=== PATIENT | female | born 1930 | race Caucasian/White ===

== ENCOUNTER 2017-01-02 13:30 | Inpatient (IN) | payer OTHER ==
--- NOTE | 2017-01-02 13:59 | PDOC ---
History of Present Illness - History of Present Illness Initial Comments: 01/02/17 14:35 CHIEF COMPLAINT: Pain and redness of right hand PCP: Dr. Altagracia Means HISTORY OF PRESENT ILLNESS: 86 year old female was sent from urgent care for IV antibiotics for Cellulitis of right hand. A/c to the patient, she had a small cut at the base of the right thumb while cutting cheese yesterday. She started having pain at that area and noticed redness. The redness and swelling increased which progressed upto her elbow, took tylenol which relieved the pain. This morning, pain, redness, swelling persisted, patient went to the urgent care and was sent here at [facility] for IV antibiotics. Labs from the urgent care noted which is WNL. Denies fever, chills, rigors, sweating, chest pain, sob, cough, palpitation, abdominal pain, nausea or vomiting. Bowel/Bladder habit normal. Sleep/Appetite Normal. Recent Travel: None PAST MEDICAL HISTORY: Foot ulcer, PVD, anemia, Hypertension, Hyperlipidemia, Atherosclerotic heart disease, migraine, Hypothyroidism, Sensory neuropathy, Vitreous Detachment, Cataracts PAST SURGICAL HISTORY: As mentioned above Social History: Smoking: Denies Alcohol: Denies Drugs: Denies Family History: Unknown Allergies NKDA <Kimberly Childers - Last Filed: 01/21/17 13:28> <Aundrea Anderson - Last Filed: 01/25/17 09:06> - General Chief Complaint: Wound Infection Stated Complaint: WOUND INFECTION Time Seen by Provider: 01/02/17 13:56 Past History - Past Medical History Anemia: Yes Cardiac Disorders: Yes (IN) HTN: Yes - Surgical History Cardiac Surgery: Yes - Psycho/Social/Smoking Cessation Hx Suicidal Ideation: No Smoking History: Never smoked Information on smoking cessation initiated: No <Kimberly Childers - Last Filed: 01/21/17 13:28> <Aundrea Anderson - Last Filed: 01/25/17 09:06> - Past Medical History Allergies/Adverse Reactions: Allergies Allergy/AdvReac Type Severity Reaction Status Date / Time No Known Allergies Allergy Verified 01/02/17 13:36 Home Medications: Ambulatory Orders Calcium Carbonate/Vitamin D3 [Calcium 600 + Vit D Tablet] 1 each PO BID Cetirizine HCl [Zyrtec -] 10 mg PO DAILY 01/02/17 Cholecalciferol (Vitamin D3) [Vitamin D -] 1,000 unit PO DAILY 01/02/17 Fluticasone Prop 0.05% Nasal [Flonase -] 2 spray NS DAILY 01/02/17 Gabapentin [Neurontin] 100 mg PO HS 01/02/17 Hydrochlorothiazide [Hctz -] 12.5 mg PO DAILY 01/02/17 Lisinopril [Prinivil] 20 mg PO DAILY 01/02/17 Risedronate Sodium [Actonel] 30 mg PO WEEKLY 01/02/17 Atorvastatin Ca [Lipitor] 80 mg PO HS tablet 01/04/17 Carvedilol [Coreg -] 3.125 mg PO BID tablet 01/04/17 Cephalexin Monohydrate [Keflex -] 500 mg PO Q8H #15 capsule 01/04/17 Ferrous Sulfate [Feosol] 325 mg PO DAILY ud 01/04/17 Levothyroxine [Synthroid -] 25 mcg PO DAILY@0700 tablet 01/04/17 Review of Systems - Review of Systems Able to Perform ROS?: Yes Comments:: 01/02/17 14:53 CONSTITUTIONAL: Absent: fever, chills, diaphoresis, generalized weakness, malaise, loss of appetite HEENT: Absent: rhinorrhea, nasal congestion, throat pain, throat swelling, difficulty swallowing, mouth swelling, ear pain, eye pain, visual Changes CARDIOVASCULAR: Absent: chest pain, syncope, palpitations, irregular heart rate, lightheadedness , peripheral edema RESPIRATORY: Absent: cough, shortness of breath, dyspnea with exertion, orthopnea, wheezing, stridor, hemoptysis GASTROINTESTINAL: Absent: abdominal pain, abdominal distension, nausea, vomiting, diarrhea, constipation, melena, hematochezia GENITOURINARY: Absent: dysuria, frequency, urgency, hesitancy, hematuria, flank pain, genital pain MUSCULOSKELETAL: Absent: myalgia, arthralgia, joint swelling SKIN: Present: Redness, swelling over the right hand extending to the elbow. Absent: rash, itching, pallor HEMATOLOGIC/IMMUNOLOGIC: Absent: easy bleeding, easy bruising, lymphadenopathy, frequent infections ENDOCRINE: Absent: unexplained weight gain, unexplained weight loss, heat intolerance, cold intolerance NEUROLOGIC: Absent: headache, focal weakness or paresthesias, dizziness, unsteady gait, seizure, mental status changes, bladder or bowel incontinence PSYCHIATRIC: Absent: anxiety, depression, suicidal or homicidal ideation, hallucinations. Is the patient limited [place]an proficient: No <Kimberly Childers - Last Filed: 01/21/17 13:28> *Physical Exam - Vital Signs Last Vital Signs Temp Pulse Resp BP Pulse Ox 98.1 F 81 18 138/63 99 01/02/17 13:32 01/02/17 13:32 01/02/17 13:32 01/02/17 13:32 01/02/17 13:32 - Physical Exam Comments: 01/02/17 14:54 PE: GENERAL: Awake, alert, and fully oriented, in no acute distress HEAD: No signs of trauma EYES: PERRLA, EOMI, sclera anicteric, conjunctiva clear ENT: Auricles normal inspection, hearing grossly normal, nares patent, oropharynx clear without exudates. Moist mucosa NECK: Normal ROM, supple, no lymphadenopathy, JVD, or masses LUNGS: Breath sounds equal, clear to auscultation bilaterally. No wheezes, and no crackles.. HEART: Regular rate and rhythm, normal S1 and S2, no murmurs, rubs or gallops ABDOMEN: Soft, nontender, normoactive bowel sounds. No guarding, no rebound. No masses EXTREMITIES: Right upper extremity: Swelling+, redness on the dorsum of the hand, palms, streaks of redness extending up to the elbow. Normal range of motion, no edema. No clubbing or cyanosis. No cords, erythema , or tenderness NEUROLOGICAL: Cranial nerves II through XII grossly intact. Normal speech, Gait not observed SKIN: Warm, Dry, normal turgor, no rashes or lesions noted. <Kimberly Childers - Last Filed: 01/21/17 13:28> - Vital Signs Last Vital Signs Temp Pulse Resp BP Pulse Ox 98.4 F 76 20 112/69 96 01/04/17 09:54 01/04/17 09:54 01/04/17 09:54 01/04/17 09:54 01/04/17 09:00 <Aundrea Anderson - Last Filed: 01/25/17 09:06> ED Treatment Course - LABORATORY CBC & Chemistry Diagram: 01/03/17 06:35 01/03/17 06:35 <Alvarado,Jenny - Last Filed: 01/21/17 13:28> - LABORATORY CBC & Chemistry Diagram: 01/03/17 06:35 01/03/17 06:35 - ADDITIONAL ORDERS Additional order review: 01/02/17 14:54 Blood Culture - Final Blood - Peripheral Venous NO GROWTH AFTER 5 DAYS INCUBATION 01/02/17 14:57 Blood Culture - Final Blood - Peripheral Venous NO GROWTH AFTER 5 DAYS INCUBATION 01/02/17 14:57 RBC 3.79 MCV 97.2 H MCHC 33.5 RDW 13.7 MPV 8.8 Neutrophils % 69.8 Lymphocytes % 18.6 Monocytes % 10.5 H Eosinophils % 0.5 Basophils % 0.6 - Medications Given in the ED: ED Medications Discontinued Medications Generic Name Dose Route Start Last Admin Trade Name Freq PRN Reason Stop Dose Admin Acetaminophen 650 mg 01/02/17 18:13 01/02/17 22:05 Tylenol - PO 650 mg Q4H PRN Administration FEVER OR PAIN Atorvastatin Calcium 80 mg 01/02/17 22:00 01/03/17 21:50 Lipitor - PO 80 mg HS CONG Administration Calcium Carbonate/Cholecalciferol 1 tab 01/02/17 22:00 01/04/17 10:46 Os-Catrachito 500+D - PO 1 tab BID CONG Administration Carvedilol 3.125 mg 01/02/17 22:00 01/04/17 10:47 Coreg - PO 3.125 mg BID CONG Administration Cephalexin HCl 500 mg 01/04/17 13:30 01/04/17 13:41 Keflex - PO 500 mg BID CONG Administration Cholecalciferol 1,000 unit 01/03/17 10:00 01/04/17 10:47 Vitamin D3 - PO 1,000 unit DAILY CONG Administration Clopidogrel Bisulfate 300 mg 01/02/17 19:32 01/02/17 20:53 Plavix - PO 01/02/17 19:33 300 mg ONCE ONE Administration Ferrous Sulfate 325 mg 01/03/17 10:00 01/04/17 10:47 Feosol - PO 325 mg DAILY CONG Administration Fluticasone Propionate 2 spray 01/03/17 10:00 01/04/17 11:35 Flonase - NS 2 spray DAILY CONG Administration Folic Acid 1 mg 01/03/17 10:00 01/04/17 10:47 Folic Acid - PO 1 mg DAILY CONG Administration Gabapentin 100 mg 01/02/17 22:00 01/03/17 21:50 Neurontin - PO 100 mg HS CONG Administration Hydrochlorothiazide 12.5 mg 01/03/17 10:00 01/04/17 10:47 Hctz - PO 12.5 mg DAILY CONG Administration Vancomycin HCl 1,000 mg/ 250 mls @ 250 mls/hr 01/02/17 14:32 01/02/17 15:26 Dextrose IVPB 01/02/17 15:31 250 mls/hr ONCE ONE Administration Protocol Cefazolin Sodium 50 mls @ 100 mls/hr 01/03/17 10:00 01/04/17 11:34 Ancef 1gm Ivpb (Pre-Docked) IVPB Not Given Q8H-IV CONG Levothyroxine Sodium 25 mcg 01/03/17 07:00 01/04/17 06:22 Synthroid - PO 25 mcg DAILY@0700 CONG Administration Lisinopril 20 mg 01/03/17 10:00 01/04/17 10:47 Prinivil PO 20 mg DAILY CONG Administration Loratadine 10 mg 01/03/17 10:00 01/04/17 10:47 Claritin - PO 10 mg DAILY CONG Administration Zolpidem Tartrate 5 mg 01/03/17 21:09 01/03/17 21:50 Ambien - PO 01/04/17 21:08 5 mg HS PRN Administration INSOMNIA <Aundrea Anderson - Last Filed: 01/25/17 09:06> Medical Decision Making - Medical Decision Making 01/02/17 14:57 Patient seen and examined at bed side. Looks comfortable. Is not in pain. Positive physical exam: Right upper extremity: Swelling+, Redness over the palms and wrist extending upto the elbows. Raised temperature. Patient was sent from urgent care, labs attached in the chart. However, ordered CBC, CMP, blood culture now. Patient received IV Vancomycin 1gm stat. Assessment/Plan: Cellulitis of the right hand. Place on observation Since patient has streaks of redness extending to the elbow, patient needs IV antibiotics. No pain medication Admitting physician accepted the patient. Illness, Investigation and PLan of care explained to the patient. She verbalized understanding. Case seen and discussed with Dr. Anderson. <Kimberly Childers - Last Filed: 01/21/17 13:28> *DC/Admit/Observation/Transfer - Discharge Dispostion Admit: Yes <Kimberly Childers - Last Filed: 01/21/17 13:28> - Attestations Physician Attestion: I reviewed the case with the mid-level practitioner and agree with the mid- level practitioner's assessment, diagnosis and disposition. <Aundrea Anderson - Last Filed: 01/25/17 09:06> Diagnosis at time of Disposition: Cellulitis Qualifiers: Site of cellulitis: extremity Site of cellulitis of extremity: upper extremity Laterality: right Qualified Code(s): L03.113 - Cellulitis of right upper limb - Discharge Dispostion Disposition: HOME Condition at time of disposition: Stable - Prescriptions
--- NOTE | 2017-01-02 14:19 | PDOC ---
Attending Attestation - Resident Resident Name: Kimberly Childers - ED Attending Attestation I have performed the following: I have examined & evaluated the patient, The case was reviewed & discussed with the resident, I agree w/resident's findings & plan, Exceptions are as noted - HPI HPI: 86 yo F history PVD, HTN, HL, ASHD, hypothyroid presents with R hand swelling, redness, and pain. She sustained a small cut while slicing cheese yesterday, and she noted that the area started to turn red. Now, one day later, it has rapidly spread to the back of her hand and is tracking up her arm. She endorses pain, but denies fever, chills. She was evaluated at an urgent care, which recommended that she go to hospital for IV antibiotics. - Physicial Exam PE: GENERAL: Awake, alert, and fully oriented, in no acute distress HEAD: No signs of trauma EYES: PERRLA, EOMI, sclera anicteric, conjunctiva clear ENT: Auricles normal inspection, hearing grossly normal, nares patent, oropharynx clear without exudates. Moist mucosa NECK: Normal ROM, supple, no lymphadenopathy, JVD, or masses LUNGS: Breath sounds equal, clear to auscultation bilaterally. No wheezes, and no crackles HEART: Regular rate and rhythm, normal S1 and S2, no murmurs, rubs or gallops ABDOMEN: Soft, nontender, normoactive bowel sounds. No guarding, no rebound. No masses EXTREMITIES: Normal range of motion, no edema. No clubbing or cyanosis. No cords, erythema, or tenderness NEUROLOGICAL: Cranial nerves II through XII grossly intact. Normal speech, normal gait SKIN: Warm, Dry, normal turgor. R hand with swelling, erythema on the dorsal surface of the hand and thumb, with lymphatic streaking extending to the elbow. - Medical Decision Making Patient will require observation at the least while receiving IV antibiotics, based on lymphatic streaking up the arm.
[2017-01-02] MEDS ORDERED: VANCOMYCIN 1,000 MG in DEXTROSE 5%-WATER - 250 ML IVPB ONE (14:32)
[2017-01-02] MEDS ORDERED: VANCOMYCIN 1 GRAM (PRE-DOCKED) 250 ML IVPB ONE (14:58)
[2017-01-02 15:06] LABS: BASOPHIL 0.6 % (0-2.0); EOSINOPHIL 0.5 % (0-4.5); MCH 32.6 pg (25.7-33.7); MCHC 33.5 g/dl (32.0-36.0); MEAN CELL VOLUME 97.2 fl (80-96); MEAN PLT VOLUME 8.8 fl (7.5-11.1); NEUTROPHILS 69.8 % (42.8-82.8); PLATELET COUNT 258 K/MM3 (134-434); RDW 13.7 % (11.6-15.6)
[2017-01-02 15:26] LABS: ALBUMIN 3.5 g/dl (3.4-5.0); BILIRUBIN,TOTAL 0.5 mg/dL (0.2-1.0); CREATININE 0.9 mg/dL (0.55-1.02); TOT PROT 6.8 g/dl (6.4-8.2)
--- NOTE | 2017-01-02 15:39 | HP ---
CHIEF COMPLAINT: erythema and pain right hand PCP: Dr. Altagracia Means HISTORY OF PRESENT ILLNESS: 86 year old woman with HTN, hx of MIx2, osteoporosis, hypothyroidism, was referred from [facility] urgent care for IV antibiotics for right hand cellulitis. She was cutting cheese yesterday when she cut herself in the byrnes space between her thumb and index finger. Later in the day she noticed her hand became more red, swollen and painful. They went to a later in the day. Within 24hrs the redness went up to her elbow. She denies any discharge from the cut since the bleeding stopped. This morning she went to urgent care, labs were wnl(no leucocytosis)/ (afebrile , VSS), given the redness to elbow she was recommended to to go ER. Last week she had a productive cough with URI symptoms that self-resolved without antibiotics. Family at bedside also c/o unsteady gait, no recent falls. Denies fever, chills, difficulty moving fingers or arm, no previous episodes of cellulitis. ER course was notable for: (1) vanc x1 (2) blood cultures Recent Travel: none PAST MEDICAL HISTORY: Hypertension Heart disease s/p [place] x2 with stent placed both in 2015 osteoporosis varicose veins Neuropathy in her feet hypothyroidism PAST SURGICAL HISTORY: cardiac stent placement x2 in 2014 Social History: Smoking: never Alcohol: denies Drugs: denies Family History: [place] Allergies No Known Allergies Allergy (Verified 01/02/17 13:36) HOME MEDICATIONS: Home Medications Medication Instructions Recorded Calcium Carbonate/Vitamin D3 1 each PO BID 01/02/17 [Calcium 600 + Vit D Tablet] Cetirizine HCl [Zyrtec -] 10 mg PO DAILY 01/02/17 Cholecalciferol (Vitamin D3) 1,000 unit PO DAILY 01/02/17 [Vitamin D3 -] Fluticasone Prop 0.05% Nasal 2 spray NS DAILY 01/02/17 [Flonase -] Gabapentin [Neurontin] 100 mg PO HS 01/02/17 Hydrochlorothiazide [Hctz -] 12.5 mg PO DAILY 01/02/17 Lisinopril [Prinivil] 20 mg PO DAILY 01/02/17 Risedronate Sodium [Actonel] 30 mg PO WEEKLY 01/02/17 REVIEW OF SYSTEMS CONSTITUTIONAL: Absent: fever, chills, diaphoresis, generalized weakness, malaise, loss of appetite, weight change HEENT: Absent: rhinorrhea, nasal congestion, throat pain, throat swelling, difficulty swallowing, mouth swelling, ear pain, eye pain, visual changes CARDIOVASCULAR: Absent: chest pain, syncope, palpitations, irregular heart rate, lightheadedness , peripheral edema RESPIRATORY: Absent: cough, shortness of breath, dyspnea with exertion, orthopnea, wheezing, stridor, hemoptysis GASTROINTESTINAL: Absent: abdominal pain, abdominal distension, nausea, vomiting, diarrhea, constipation, melena, hematochezia GENITOURINARY: Absent: dysuria, frequency, urgency, hesitancy, hematuria, flank pain, genital pain MUSCULOSKELETAL: Absent: myalgia, arthralgia, joint swelling, back pain, neck pain SKIN: Absent: rash, itching, pallor HEMATOLOGIC/IMMUNOLOGIC: Absent: easy bleeding, easy bruising, lymphadenopathy, frequent infections ENDOCRINE: Absent: unexplained weight gain, unexplained weight loss, heat intolerance, cold intolerance NEUROLOGIC: Absent: headache, focal weakness or paresthesias, dizziness, unsteady gait, seizure, mental status changes, bladder or bowel incontinence PSYCHIATRIC: Absent: anxiety, depression, suicidal or homicidal ideation, hallucinations. PHYSICAL EXAMINATION Vital Signs - 24 hr 01/02/17 13:32 Temperature 98.1 F Pulse Rate 81 Respiratory 18 Rate Blood Pressure 138/63 O2 Sat by Pulse 99 Oximetry (%) GENERAL: thin elderly woma, Awake, alert, and fully oriented, in no acute distress. HEAD: Normal with no signs of trauma. EYES: Pupils equal, round and reactive to light, extraocular movements intact, sclera anicteric, conjunctiva clear. No lid lag. EARS, NOSE, THROAT: Ears normal, nares patent, oropharynx clear without exudates. Moist mucous membranes. NECK: Normal range of motion, supple without lymphadenopathy, JVD, or masses. LUNGS: Breath sounds equal, clear to auscultation bilaterally. No wheezes, and no crackles. No accessory muscle use. HEART: Regular rate and rhythm, normal S1 and S2 without murmur, rub or gallop. ABDOMEN: Soft, nontender, not distended, normoactive bowel sounds, no guarding, no rebound, no masses. MUSCULOSKELETAL: Normal range of motion at all joints. No bony deformities or tenderness. No CVA tenderness. UPPER EXTREMITIES: 2+ pulses, warm, well-perfused. No peripheral edema. Right: small approx 1cm closed laceration visible in webspace between thumb and index finger. erythema and swelling on dorsum upto MCP joints, palmar upto PCP joints, medially upto antecubital fossa. sensation intact throughout, motor function at fingers and wrist intact. no fluctuance, no discharge, skin intact. 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 Left: strength 5/5 at biceps/triceps/hand pit operator, shoulder. sensation intact. LOWER EXTREMITIES: 2+ pulses, warm, well-perfused. No calf tenderness. No peripheral edema. varicose veins. NEUROLOGICAL: Normal speech. [id number] normal, [id number] normal. PSYCHIATRIC: Cooperative. Good eye contact. Appropriate mood and affect. Laboratory Results - last 24 hr 01/02/17 01/02/17 14:57 14:57 WBC 8.0 RBC 3.79 Hgb 12.4 Hct 36.9 MCV 97.2 H MCHC 33.5 RDW 13.7 Plt Count 258 MPV 8.8 Neutrophils % 69.8 Lymphocytes % 18.6 Monocytes % 10.5 H Eosinophils % 0.5 Basophils % 0.6 Sodium 141 Potassium 4.2 Chloride 103 Carbon Dioxide 31 Anion Gap 7 L BUN 19 H Creatinine 0.9 Creat Clearance w eGFR 59.23 Random Glucose 90 Calcium 9.0 Total Bilirubin 0.5 AST 22 ALT 32 Alkaline Phosphatase 89 Total Protein 6.8 Albumin 3.5 ASSESSMENT/PLAN: 86 yr old woman with HTN, hx of [place], admitted with right hand cellulitis. #Right hand cellulitis; concern for MRSA given streaking upto elbow - vancomycin 1 dose in Ed - ID consulted - blood cx pending - pain control with tylenol 650mg po bid #HTN - HTZ, lisinopril - carvidelol #unsteady gait - PT evaluation #CAD - atorvastatin - clopidogrel #Hypothyroidism - synthroid 75mcg #Diet: low sodium DVT: on clopidogrel Visit type - Emergency Visit Emergency Visit: Yes ED Registration Date: 01/02/17 Care time: The patient presented to the Emergency Department on the above date and was hospitalized for further evaluation of their emergent condition. - New Patient This patient is new to me today: Yes Date on this admission: 01/02/17 - Critical Care Critical Care patient: No
[2017-01-02] MEDS ORDERED: ACETAMINOPHEN 325 MG TABLET (FP) PO PRN (18:13)
--- NOTE | 2017-01-02 18:23 | PN ---
Teaching Attending Note Name of Resident: Mikey Silva ATTENDING PHYSICIAN STATEMENT I saw and evaluated the patient. I reviewed the resident's note and discussed the case with the resident. I agree with the resident's findings and plan as documented. SUBJECTIVE: Patient is a 86yo female , was cutting cheese where she cut herself in the web space between her thumb and index finger. Later in the day she noticed her hand became red, swollen and painful. No fever or chills, no shortness of breath, no headache. OBJECTIVE: Vital Signs Temperature 98.1 F 01/02/17 13:32 Pulse Rate 81 01/02/17 13:32 Respiratory Rate 18 01/02/17 13:32 Blood Pressure 138/63 01/02/17 13:32 O2 Sat by Pulse Oximetry (%) 99 01/02/17 13:32 GENERAL: thin elderly woma, Awake, alert, and fully oriented, in no acute distress. HEAD: Normal with no signs of trauma. EYES: Pupils equal, round and reactive to light, extraocular movements intact, sclera anicteric, conjunctiva clear. No lid lag. EARS, NOSE, THROAT: Ears normal, nares patent, oropharynx clear without exudates. Moist mucous membranes. NECK: Normal range of motion, supple without lymphadenopathy, JVD, or masses. LUNGS: Breath sounds equal, clear to auscultation bilaterally. No wheezes, and no crackles. No accessory muscle use. HEART: Regular rate and rhythm, normal S1 and S2 without murmur, rub or gallop. ABDOMEN: Soft, nontender, not distended, normoactive bowel sounds, no guarding, no rebound, no masses. MUSCULOSKELETAL: Normal range of motion at all joints. No bony deformities or tenderness. No CVA tenderness. EXTREMITIES: 2+ pulses, warm, well-perfused. No peripheral edema. RUE : erythema and swelling on dorsum upto MCP joints, palmar upto PCP joints, NEUROLOGICAL: Cranial nerves II-XII intact. Normal speech. Normal gait. PSYCHIATRIC: Cooperative. Good eye contact. Appropriate mood and affect. SKIN: Warm, dry, normal turgor, no rashes or lesions noted. CBCD WBC 8.0 K/mm3 (4.0-10.0) 01/02/17 14:57 RBC 3.79 M/mm3 (3.60-5.2) 01/02/17 14:57 Hgb 12.4 GM/dL (10.7-15.3) 01/02/17 14:57 Hct 36.9 % (32.4-45.2) 01/02/17 14:57 MCV 97.2 fl (80-96) H 01/02/17 14:57 MCHC 33.5 g/dl (32.0-36.0) 01/02/17 14:57 RDW 13.7 % (11.6-15.6) 01/02/17 14:57 Plt Count 258 K/MM3 (134-434) 01/02/17 14:57 MPV 8.8 fl (7.5-11.1) 01/02/17 14:57 CMP Sodium 141 mmol/L (136-145) 01/02/17 14:57 Potassium 4.2 mmol/L (3.5-5.1) 01/02/17 14:57 Chloride 103 mmol/L (98-107) 01/02/17 14:57 Carbon Dioxide 31 mmol/L (21-32) 01/02/17 14:57 Anion Gap 7 (8-16) L 01/02/17 14:57 BUN 19 mg/dL (7-18) H 01/02/17 14:57 Creatinine 0.9 mg/dL (0.55-1.02) 01/02/17 14:57 Creat Clearance w eGFR 59.23 (>60) 01/02/17 14:57 Random Glucose 90 mg/dL (74-106) 01/02/17 14:57 Calcium 9.0 mg/dL (8.5-10.1) 01/02/17 14:57 Total Bilirubin 0.5 mg/dL (0.2-1.0) 01/02/17 14:57 AST 22 U/L (15-37) 01/02/17 14:57 ALT 32 U/L (12-78) 01/02/17 14:57 Alkaline Phosphatase 89 U/L (45-117) 01/02/17 14:57 Total Protein 6.8 g/dl (6.4-8.2) 01/02/17 14:57 Albumin 3.5 g/dl (3.4-5.0) 01/02/17 14:57 Current Medications Generic Name Dose Route Start Last Admin Trade Name Freq PRN Reason Stop Dose Admin Acetaminophen 650 mg 01/02/17 18:13 Tylenol - PO Q4H PRN FEVER OR PAIN Calcium Carbonate/Cholecalciferol 1 tab 01/02/17 22:00 Os-Catrachito 500+D - PO BID CONG Cholecalciferol 1,000 unit 01/03/17 10:00 Vitamin D3 - PO DAILY [facility] Enoxaparin Sodium 30 mg 01/03/17 10:00 Lovenox - SQ DAILY CONG Fluticasone Propionate 2 spray 01/03/17 10:00 Flonase - NS DAILY [facility] Gabapentin 100 mg 01/02/17 22:00 Neurontin - PO HS [facility] Hydrochlorothiazide 12.5 mg 01/03/17 10:00 Hctz - PO DAILY CONG Lisinopril 20 mg 01/03/17 10:00 Prinivil PO DAILY CONG Loratadine 10 mg 01/03/17 10:00 Claritin - PO DAILY [facility] Home Medications Medication Instructions Recorded Calcium Carbonate/Vitamin D3 1 each PO BID 01/02/17 [Calcium 600 + Vit D Tablet] Cetirizine HCl [Zyrtec -] 10 mg PO DAILY 01/02/17 Cholecalciferol (Vitamin D3) 1,000 unit PO DAILY 01/02/17 [Vitamin D3 -] Fluticasone Prop 0.05% Nasal 2 spray NS DAILY 01/02/17 [Flonase -] Gabapentin [Neurontin] 100 mg PO HS 01/02/17 Hydrochlorothiazide [Hctz -] 12.5 mg PO DAILY 01/02/17 Lisinopril [Prinivil] 20 mg PO DAILY 01/02/17 Risedronate Sodium [Actonel] 30 mg PO WEEKLY 01/02/17 ASSESSMENT AND PLAN: 86 year old woman with HTN, hx of MIx2, osteoporosis, hypothyroidism, was referred from [facility] urgent care for IV antibiotics for right hand cellulitis. She was cutting cheese yesterday when she cut herself in the web space between her thumb and index finger. # Acute Cellulitis of Right upper extremity ID consult requested , Panculture ordered, blood, ua ,urine culture IV antibiotic Vancomycin was given in ED. Will give another dose in am. #HTN controlled continue Lisinopril and Hctz DVT px: Lovenox
[2017-01-02] MEDS ORDERED: CLOPIDOGREL BISULFATE 300 MG TABLET PO ONE (19:32)
[2017-01-02] MEDS ORDERED: CLOPIDOGREL BISULFATE 300 MG TABLET ONE (20:48)
[2017-01-02] MEDS: ATORVASTATIN CA 80 MG TABLET (FP) PO SCH (22:01)
[2017-01-02] MEDS: CALCIUM 500MG/VIT-D 200 UNITS COMBO TABLET (FP) PO SCH (22:01)
[2017-01-02] MEDS: GABAPENTIN 100 MG CAPSULE (FP) PO SCH (22:01)
[2017-01-02] MEDS: CARVEDILOL 3.125 MG TABLET (FP) PO SCH (22:01)
[2017-01-02 23:15] LABS: URINE APPEARANCE CLEAR; URINE BILIRUBIN NEGATIVE (NEGATIVE); URINE BLOOD NEGATIVE (NEGATIVE); URINE COLOR YELLOW; URINE GLUCOSE (UA) NEGATIVE (NEGATIVE); URINE KETONE NEGATIVE (NEGATIVE); URINE NITRITE NEGATIVE (NEGATIVE); URINE PROTEIN NEGATIVE (NEGATIVE); URINE UROBILINOGEN NEGATIVE E.U./dl (0.2-1.0)
[2017-01-02 23:16] VITALS: BMI 18.5
[2017-01-02 23:44] LABS: URINE LEUK ESTERASE TRACE (NEGATIVE)
[2017-01-02 23:49] LABS: URINE MUCUS FEW; URINE RBC 2 /hpf (0-3); URINE WBC 9 /hpf (3-5)
[2017-01-03] MEDS: LEVOTHYROXINE NA 25 MCG TABLET (FP) PO SCH (06:46)
[2017-01-03 07:04] LABS: MCH 32.8 pg (25.7-33.7); MCHC 33.5 g/dl (32.0-36.0); MEAN CELL VOLUME 97.8 fl (80-96); MEAN PLT VOLUME 8.5 fl (7.5-11.1); PLATELET COUNT 245 K/MM3 (134-434); RDW 13.5 % (11.6-15.6); WHITE BLOOD COUNT 7.8 K/mm3 (4.0-10.0)
[2017-01-03 07:38] LABS: CALCIUM 8.7 mg/dL (8.5-10.1); CREATININE 0.8 mg/dL (0.55-1.02)
--- NOTE | 2017-01-03 09:40 | PN ---
Progress Note (short form) - Note Progress Note: ID consult dictated imp/reccd 86 year old female admitted with erythema and swelling of the right hand after sustaining a small cult to the hand on Tuesday no fevers or chills progressive erythema and swelling no purulence or fluctuance to suggest abscess no leukocytosis cultures drawn given vancomycin in ED cellulitis of the right hand improving no RF for MRSA can switch to cefazolin if improved in am, home on keflex Problem List - Problems (1) Cellulitis Code(s): L03.90 - CELLULITIS, UNSPECIFIED Qualifiers: Site of cellulitis: extremity Site of cellulitis of extremity: upper extremity Laterality: right Qualified Code(s): L03.113 - Cellulitis of right upper limb
[2017-01-03] MEDS ORDERED: PT OWN MED DRAWER 7, Y5N ONE (09:45)
[2017-01-03] MEDS: CHOLECALCIFEROL (VITAMIN D3) 1,000 UNIT TABLET (FP) PO SCH (09:55)
[2017-01-03] MEDS: FERROUS SO4 325 MG TABLET (FP) PO SCH (09:55)
[2017-01-03] MEDS: FOLIC ACID 1 MG TABLET (FP) PO SCH (09:55)
[2017-01-03] MEDS: HYDROCHLOROTHIAZIDE 12.5 MG CAPSULE (FP) PO SCH (09:55)
[2017-01-03] MEDS: LISINOPRIL 20 MG TABLET (FP) PO SCH (09:55)
[2017-01-03] MEDS: CALCIUM 500MG/VIT-D 200 UNITS COMBO TABLET (FP) PO SCH ×2 (09:55→21:50)
[2017-01-03] MEDS: LORATADINE 10 MG TABLET PO SCH (09:56)
[2017-01-03] MEDS: CARVEDILOL 3.125 MG TABLET (FP) PO SCH ×2 (09:56→21:50)
[2017-01-03] MEDS ORDERED: VANCOMYCIN 1 GRAM (PRE-DOCKED) 250 ML IVPB ONE (10:00)
[2017-01-03] MEDS ORDERED: CEFAZOLIN 1 GM/D5W 50 ML IVPB SCH (10:00)
[2017-01-03] MEDS ORDERED: ENOXAPARIN NA (PORCINE) 30 MG/0.3 ML DISP.SYRIN SQ SCH (10:00)
[2017-01-03] MEDS: CEFAZOLIN (PRE-DOCKED) 50 ML IVPB SCH ×2 (10:15→18:04)
--- NOTE | 2017-01-03 11:56 | CONS ---
DATE OF CONSULTATION: DATE OF DICTATION: 01/03/2017 REQUESTED BY: Hospitalist service. This is an 86-year-old woman who lives at home with her 94-year-old . On Tuesday she was cutting some cheese and she nicked her right hand. Later in the day, she went to a . She noted progressive erythema of the hand extending up to her elbow. She went to the urgent care center where, given the degree of erythema, she was referred to the ER. She has had no fevers or chills. She otherwise feels well. There has been no drainage or discharge from the hand. In the emergency room, she had labs drawn that showed a normal white count and she was given a dose of vancomycin. She denies any fevers or chills. She has no trouble moving her fingers. She has never had cellulitis before. She has not recently taken any antibiotics. Her past medical history is notable for hypertension. She has a history of coronary artery disease, status post [place] x2 with stent, osteoporosis, varicose veins, peripheral neuropathy, hypothyroidism. She has a history of peripheral vascular disease. She has no known drug allergies. Her medications at home include with vitamin D, Zyrtec, Flonase, Neurontin, hydrochlorothiazide, Prinivil, and Actonel. SOCIAL HISTORY: She is . She lives at home with her . There is no history of any cigarette or substance use. REVIEW OF SYSTEMS: She reports her hand is improved, she has no pain. She has no nausea, vomiting, diarrhea, dysuria, and as stated before, no recent antibiotic use. PHYSICAL EXAMINATION: General: She is a pleasant elderly woman in no acute distress. Vital Signs: Temperature is 97.9. She has had no fever. Pulse of 79. Blood pressure 107/60. Respiratory rate 18. She weighs 100.3 pounds. She is saturating 96% on room air. HEENT: She is normocephalic. Her eyes are anicteric. She has no thrush or pharyngitis. Neck: Supple. Lungs: Clear to auscultation. Heart: Regular rate and rhythm. Abdomen: Soft, nontender. Extremities: Notable for diffuse erythema of the right hand, which she reports is much improved. She no longer has erythema of the forearm. Right arm is more swollen than the left. She has full range of motion of the hand. She has a palpable radial pulse. Both legs, she has some discoloration of all her toes, which she says is chronic from her peripheral vascular disease. Her labs are notable for a white count of 7.8, hemoglobin 12.3, platelets of 245, BUN 16, creatinine 0.8. Urinalysis has 9 white cells. Cultures are pending. In summary, this is an 86-year-old woman with cellulitis of the right hand, which is improving. No risk factors for MRSA. Can switch to cefazolin. If improved in the morning, she can go home on Keflex. Further recommendations to follow, based on the clinical course. GLADYS PATTON M.D. [id number]
[2017-01-03] MEDS: FLUTICASONE PROP 0.05% 16 GM NASAL SPRAY NS SCH (12:37)
--- NOTE | 2017-01-03 18:01 | PN ---
Progress Note (short form) - Note Progress Note: Patient is comfortable , still having redness of right Temperature 98.5 F 01/03/17 14:12 Pulse Rate 74 01/03/17 14:12 Respiratory Rate 18 01/03/17 14:12 Blood Pressure 122/56 01/03/17 14:12 O2 Sat by Pulse Oximetry (%) 95 01/03/17 09:00 GENERAL: thin elderly woma, Awake, alert, and fully oriented, in no acute distress. HEAD: Normal with no signs of trauma. EYES: Pupils equal, round and reactive to light, extraocular movements intact, sclera anicteric, conjunctiva clear. No lid lag. EARS, NOSE, THROAT: Ears normal, nares patent, oropharynx clear without exudates. Moist mucous membranes. NECK: Normal range of motion, supple without lymphadenopathy, JVD, or masses. LUNGS: Breath sounds equal, clear to auscultation bilaterally. No wheezes, and no crackles. No accessory muscle use. HEART: Regular rate and rhythm, normal S1 and S2 without murmur, rub or gallop. ABDOMEN: Soft, nontender, not distended, normoactive bowel sounds, no guarding, no rebound, no masses. MUSCULOSKELETAL: Normal range of motion at all joints. No bony deformities or tenderness. No CVA tenderness. EXTREMITIES: 2+ pulses, warm, well-perfused. No peripheral edema. Right UE: erythema and swelling on dorsum upto MCP joints, palmar up to PCP joints, LOWER EXTREMITIES: 2+ pulses, warm, well-perfused. No calf tenderness. No peripheral edema. NEUROLOGICAL: Cranial nerves II-XII intact. Normal speech. Normal gait. PSYCHIATRIC: Cooperative. Good eye contact. Appropriate mood and affect. SKIN: Warm, dry, normal turgor, no rashes or lesions noted. CBCD WBC 7.8 K/mm3 (4.0-10.0) 01/03/17 06:35 RBC 3.75 M/mm3 (3.60-5.2) 01/03/17 06:35 Hgb 12.3 GM/dL (10.7-15.3) 01/03/17 06:35 Hct 36.7 % (32.4-45.2) 01/03/17 06:35 MCV 97.8 fl (80-96) H 01/03/17 06:35 MCHC 33.5 g/dl (32.0-36.0) 01/03/17 06:35 RDW 13.5 % (11.6-15.6) 01/03/17 06:35 Plt Count 245 K/MM3 (134-434) 01/03/17 06:35 MPV 8.5 fl (7.5-11.1) 01/03/17 06:35 CMP Sodium 142 mmol/L (136-145) 01/03/17 06:35 Potassium 4.1 mmol/L (3.5-5.1) 01/03/17 06:35 Chloride 106 mmol/L (98-107) 01/03/17 06:35 Carbon Dioxide 28 mmol/L (21-32) 01/03/17 06:35 Anion Gap 8 (8-16) 01/03/17 06:35 BUN 16 mg/dL (7-18) 01/03/17 06:35 Creatinine 0.8 mg/dL (0.55-1.02) 01/03/17 06:35 Creat Clearance w eGFR 59.23 (>60) 01/02/17 14:57 Random Glucose 100 mg/dL (74-106) 01/03/17 06:35 Calcium 8.7 mg/dL (8.5-10.1) 01/03/17 06:35 Total Bilirubin 0.5 mg/dL (0.2-1.0) 01/02/17 14:57 AST 22 U/L (15-37) 01/02/17 14:57 ALT 32 U/L (12-78) 01/02/17 14:57 Alkaline Phosphatase 89 U/L (45-117) 01/02/17 14:57 Total Protein 6.8 g/dl (6.4-8.2) 01/02/17 14:57 Albumin 3.5 g/dl (3.4-5.0) 01/02/17 14:57 Current Medications Generic Name Dose Route Start Last Admin Trade Name Freq PRN Reason Stop Dose Admin Acetaminophen 650 mg 01/02/17 18:13 01/02/17 22:05 Tylenol - PO 650 mg Q4H PRN Administration FEVER OR PAIN Atorvastatin Calcium 80 mg 01/02/17 22:00 01/02/17 22:01 Lipitor - PO 80 mg HS CONG Administration Calcium Carbonate/Cholecalciferol 1 tab 01/02/17 22:00 01/03/17 09:55 Os-Catrachito 500+D - PO 1 tab BID CONG Administration Carvedilol 3.125 mg 01/02/17 22:00 01/03/17 09:56 Coreg - PO 3.125 mg BID CONG Administration Cholecalciferol 1,000 unit 01/03/17 10:00 01/03/17 09:55 Vitamin D3 - PO 1,000 unit DAILY CONG Administration Ferrous Sulfate 325 mg 01/03/17 10:00 01/03/17 09:55 Feosol - PO 325 mg DAILY CONG Administration Fluticasone Propionate 2 spray 01/03/17 10:00 01/03/17 12:37 Flonase - NS 2 spray DAILY CONG Administration Folic Acid 1 mg 01/03/17 10:00 01/03/17 09:55 Folic Acid - PO 1 mg DAILY CONG Administration Gabapentin 100 mg 01/02/17 22:00 01/02/17 22:01 Neurontin - PO 100 mg HS CONG Administration Hydrochlorothiazide 12.5 mg 01/03/17 10:00 01/03/17 09:55 Hctz - PO 12.5 mg DAILY CONG Administration Cefazolin Sodium 50 mls @ 100 mls/hr 01/03/17 10:00 01/03/17 10:15 Ancef 1gm Ivpb (Pre-Docked) IVPB 100 mls/hr Q8H-IV CONG Administration Levothyroxine Sodium 25 mcg 01/03/17 07:00 01/03/17 06:46 Synthroid - PO 25 mcg DAILY@0700 CONG Administration Lisinopril 20 mg 01/03/17 10:00 01/03/17 09:55 Prinivil PO 20 mg DAILY CONG Administration Loratadine 10 mg 01/03/17 10:00 01/03/17 09:56 Claritin - PO 10 mg DAILY CONG Administration Home Medications Medication Instructions Recorded Calcium Carbonate/Vitamin D3 1 each PO BID 01/02/17 [Calcium 600 + Vit D Tablet] Cetirizine HCl [Zyrtec -] 10 mg PO DAILY 01/02/17 Cholecalciferol (Vitamin D3) 1,000 unit PO DAILY 01/02/17 [Vitamin D3 -] Fluticasone Prop 0.05% Nasal 2 spray NS DAILY 01/02/17 [Flonase -] Gabapentin [Neurontin] 100 mg PO HS 01/02/17 Hydrochlorothiazide [Hctz -] 12.5 mg PO DAILY 01/02/17 Lisinopril [Prinivil] 20 mg PO DAILY 01/02/17 Risedronate Sodium [Actonel] 30 mg PO WEEKLY 01/02/17 ASSESSMENT AND PLAN: 86 year old woman with HTN, hx of MIx2, osteoporosis, hypothyroidism, was referred from [facility] urgent care for IV antibiotics for right hand cellulitis. She was cutting cheese yesterday when she cut herself in the byrnse space between her thumb and index finger. # Acute Cellulitis of Right upper extremity on IV Ancef 1gm q8h s/p Vancomycin . #HTN controlled continue Lisinopril and Hctz DVT px: Lovenox Visit type - Emergency Visit Emergency Visit: Yes ED Registration Date: 01/02/17 Care time: The patient presented to the Emergency Department on the above date and was hospitalized for further evaluation of their emergent condition. - New Patient This patient is new to me today: No - Critical Care Critical Care patient: No
[2017-01-03] MEDS ORDERED: ZOLPIDEM TARTRATE 5 MG TABLET PO PRN (21:09)
[2017-01-03] MEDS: GABAPENTIN 100 MG CAPSULE (FP) PO SCH (21:50)
[2017-01-03] MEDS: ATORVASTATIN CA 80 MG TABLET (FP) PO SCH (21:50)
[2017-01-04] MEDS: CEFAZOLIN (PRE-DOCKED) 50 ML IVPB SCH ×2 (01:17→11:34)
[2017-01-04] MEDS: LEVOTHYROXINE NA 25 MCG TABLET (FP) PO SCH (06:22)
[2017-01-04 06:58] VITALS: TEMP 98.4
--- NOTE | 2017-01-04 09:19 | PN ---
Physical Exam: SUBJECTIVE: Patient seen and examined. no complaints. erythema in hand has improved. denies hand pain, chest pain, SOB, fever, chills, n/v. eating/toileting/ambulating without difficulty. OBJECTIVE: Vital Signs Period Temp Pulse Resp BP Sys/Waldron Pulse Ox Last 24 Hr 98.4 F-99.0 F 74-82 18-20 108-134/49-76 94 GENERAL: The patient is awake, alert, and fully oriented, in no acute distress. EYES: PERRL, extraocular movements intact. ENT: Ears normal, nares patent, oropharynx clear without exudates, moist mucous membranes. NECK: Trachea midline, full range of motion, supple. LUNGS: Breath sounds equal, clear to auscultation bilaterally, no wheezes, no crackles, no accessory muscle use. HEART: Regular rate and rhythm, S1, S2 without murmur, rub or gallop. ABDOMEN: Soft, nontender, nondistended, normoactive bowel sounds, no guarding, no rebound. 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 2+ pulses, warm, well-perfused, no edema. right hand 1 cm healing laceration in byrnes space between thumb and index finger without discharge or tenderness. LE: b/l sensation intact and strength5/5. 2+ pulses, warm, well-perfused, no edema. erythema in b/l toes with mild ttp. Active Medications Generic Name Dose Route Start Last Admin Trade Name Freq PRN Reason Stop Dose Admin Acetaminophen 650 mg 01/02/17 18:13 01/02/17 22:05 Tylenol - PO 650 mg Q4H PRN Administration FEVER OR PAIN Atorvastatin Calcium 80 mg 01/02/17 22:00 01/03/17 21:50 Lipitor - PO 80 mg HS CONG Administration Calcium Carbonate/Cholecalciferol 1 tab 01/02/17 22:00 01/03/17 21:50 Os-Catrachito 500+D - PO 1 tab BID CONG Administration Carvedilol 3.125 mg 01/02/17 22:00 01/03/17 21:50 Coreg - PO 3.125 mg BID CONG Administration Cholecalciferol 1,000 unit 01/03/17 10:00 01/03/17 09:55 Vitamin D3 - PO 1,000 unit DAILY CONG Administration Ferrous Sulfate 325 mg 01/03/17 10:00 01/03/17 09:55 Feosol - PO 325 mg DAILY CONG Administration Fluticasone Propionate 2 spray 01/03/17 10:00 01/03/17 12:37 Flonase - NS 2 spray DAILY CONG Administration Folic Acid 1 mg 01/03/17 10:00 01/03/17 09:55 Folic Acid - PO 1 mg DAILY CONG Administration Gabapentin 100 mg 01/02/17 22:00 01/03/17 21:50 Neurontin - PO 100 mg HS CONG Administration Hydrochlorothiazide 12.5 mg 01/03/17 10:00 01/03/17 09:55 Hctz - PO 12.5 mg DAILY CONG Administration Cefazolin Sodium 50 mls @ 100 mls/hr 01/03/17 10:00 01/04/17 01:17 Ancef 1gm Ivpb (Pre-Docked) IVPB 100 mls/hr Q8H-IV CONG Administration Levothyroxine Sodium 25 mcg 01/03/17 07:00 01/04/17 06:22 Synthroid - PO 25 mcg DAILY@0700 CONG Administration Lisinopril 20 mg 01/03/17 10:00 01/03/17 09:55 Prinivil PO 20 mg DAILY CONG Administration Loratadine 10 mg 01/03/17 10:00 01/03/17 09:56 Claritin - PO 10 mg DAILY CONG Administration Zolpidem Tartrate 5 mg 01/03/17 21:09 01/03/17 21:50 Ambien - PO 01/04/17 21:08 5 mg HS PRN Administration INSOMNIA ASSESSMENT/PLAN: 86 yr old woman with HTN, hx of [place], admitted with right hand cellulitis. #Right hand cellulitis; - improved - Keflex 500mg q8h for 5 days to complete 7-day course. - vancomycin 1 dose in Ed - ID consulted - blood cx NGTD - pain control with tylenol 650mg po bid #HTN - HTZ, lisinopril - carvidelol #unsteady gait - stable, PT eval shows pt was able to walk 120ft without difficulty #CAD - atorvastatin - clopidogrel #Hypothyroidism - synthroid 75mcg #Diet: low sodium DVT: on clopidogrel Visit type - Emergency Visit Emergency Visit: No - New Patient This patient is new to me today: No - Critical Care Critical Care patient: No - Discharge Referral Referred to [facility] No
[2017-01-04 09:55] VITALS: BP 112/69; PULSE 76
[2017-01-04] MEDS: CALCIUM 500MG/VIT-D 200 UNITS COMBO TABLET (FP) PO SCH (10:46)
[2017-01-04] MEDS: CARVEDILOL 3.125 MG TABLET (FP) PO SCH (10:47)
[2017-01-04] MEDS: FERROUS SO4 325 MG TABLET (FP) PO SCH (10:47)
[2017-01-04] MEDS: FOLIC ACID 1 MG TABLET (FP) PO SCH (10:47)
[2017-01-04] MEDS: LISINOPRIL 20 MG TABLET (FP) PO SCH (10:47)
[2017-01-04] MEDS: CHOLECALCIFEROL (VITAMIN D3) 1,000 UNIT TABLET (FP) PO SCH (10:47)
[2017-01-04] MEDS: HYDROCHLOROTHIAZIDE 12.5 MG CAPSULE (FP) PO SCH (10:47)
[2017-01-04] MEDS: LORATADINE 10 MG TABLET PO SCH (10:47)
--- NOTE | 2017-01-04 11:01 | PN ---
Progress Note (short form) - Note Progress Note: doing well no complaints Vital Signs Period Temp Pulse Resp BP Sys/Waldron Pulse Ox Last 24 Hr 98.4 F-99.0 F 74-82 18-20 108-134/49-76 94 cor-rrr lungs clear abd soft, nt ext less erythema/less swelling- almost resolved CBC, BMP 01/03/17 06:35 01/03/17 06:35 Microbiology 01/02/17 22:10 Urine - Urine Clean Catch Urine Culture - Final NO GROWTH OBTAINED 01/02/17 14:54 Blood - Peripheral Venous Blood Culture - Preliminary NO GROWTH OBTAINED AFTER 24 HOURS, INCUBATION TO CONTINUE FOR 4 DAYS. 01/02/17 14:57 Blood - Peripheral Venous Blood Culture - Preliminary NO GROWTH OBTAINED AFTER 24 HOURS, INCUBATION TO CONTINUE FOR 4 DAYS. a/p resolving hand celllulitis- antibiotic day #2 markedly improved switch to po keflex for several more days-total 5 to 7 Problem List - Problems (1) Cellulitis Code(s): L03.90 - CELLULITIS, UNSPECIFIED Qualifiers: Site of cellulitis: extremity Site of cellulitis of extremity: upper extremity Laterality: right Qualified Code(s): L03.113 - Cellulitis of right upper limb
[2017-01-04] MEDS: FLUTICASONE PROP 0.05% 16 GM NASAL SPRAY NS SCH (11:35)
--- NOTE | 2017-01-04 13:01 | DS ---
Physical Exam: SUBJECTIVE: Patient seen and examined OBJECTIVE: Vital Signs Period Temp Pulse Resp BP Sys/Waldron Pulse Ox Last 24 Hr 98.4 F-99.0 F 74-82 18-20 108-134/49-76 94 PHYSICAL EXAM GENERAL: The patient is awake, alert, and fully oriented, in no acute distress. EYES: PERRL, extraocular movements intact. ENT: Ears normal, nares patent, oropharynx clear without exudates, moist mucous membranes. NECK: Trachea midline, full range of motion, supple. LUNGS: Breath sounds equal, clear to auscultation bilaterally, no wheezes, no crackles, no accessory muscle use. HEART: Regular rate and rhythm, S1, S2 without murmur, rub or gallop. ABDOMEN: Soft, nontender, nondistended, normoactive bowel sounds, no guarding, no rebound. 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 2+ pulses, warm, well-perfused, no edema. right hand 1 cm healing laceration in byrnes space between thumb and index finger without discharge or tenderness. LE: b/l sensation intact and strength5/5. 2+ pulses, warm, well-perfused, no edema. erythema in b/l toes with mild ttp. LABS Microbiology 01/02/17 22:10 Urine - Urine Clean Catch Urine Culture - Final NO GROWTH OBTAINED 01/02/17 14:57 Blood - Peripheral Venous Blood Culture - Preliminary NO GROWTH OBTAINED AFTER 48 HOURS, INCUBATION TO CONTINUE FOR 3 DAYS. 01/02/17 14:54 Blood - Peripheral Venous Blood Culture - Preliminary NO GROWTH OBTAINED AFTER 48 HOURS, INCUBATION TO CONTINUE FOR 3 DAYS. Laboratory Tests 01/03/17 01/03/17 06:35 06:35 WBC 7.8 Hgb 12.3 Hct 36.7 Plt Count 245 Sodium 142 Potassium 4.1 Chloride 106 Carbon Dioxide 28 BUN 16 Creatinine 0.8 HOSPITAL COURSE: Date of Admission:01/02/17 - Date of Discharge: 01/04/17 86 year old woman with HTN, hx of MIx2, osteoporosis, hypothyroidism, was referred from [facility] urgent care for IV antibiotics for right hand cellulitis. She was treated with Ancef 1gm q8hr for 2 days as inpatient with significant improvement and she was discharged with Keflex 500 q8hr for additional 5 days to complete 7-day course of antibiotics with outpatient follow-up with her PCP. She had no leucocytosis, remained normotensive and afebrile during admission. Minutes to complete discharge: 35 Discharge Summary Reason For Visit: CELLULITIS Current Active Problems Cellulitis (Acute) Condition: Stable - Instructions Diet, Activity, Other Instructions: Take your antibiotics as prescribed, Keflex 500mg 1 tablet every 8 hours for 5 days to complete 7 days of antibiotic treatment (you received 2 days of antibiotics in the hospital). Drink plenty of water. Resume your home medications. Follow-up with Dr. Means in one week. If you develop fever, the redness returns on your hand returns, you have discharge form the cut or you develop any new symptoms return to the hospital. Referrals: Altagracia Torres MD [Primary Care Provider] - Disposition: HOME - Home Medications Comprehensive Discharge Medication List: Ambulatory Orders Calcium Carbonate/Vitamin D3 [Calcium 600 + Vit D Tablet] 1 each PO BID Cetirizine HCl [Zyrtec -] 10 mg PO DAILY 01/02/17 Cholecalciferol (Vitamin D3) [Vitamin D -] 1,000 unit PO DAILY 01/02/17 Fluticasone Prop 0.05% Nasal [Flonase -] 2 spray NS DAILY 01/02/17 Gabapentin [Neurontin] 100 mg PO HS 01/02/17 Hydrochlorothiazide [Hctz -] 12.5 mg PO DAILY 01/02/17 Lisinopril [Prinivil] 20 mg PO DAILY 01/02/17 Risedronate Sodium [Actonel] 30 mg PO WEEKLY 01/02/17 Atorvastatin Ca [Lipitor] 80 mg PO HS tablet 01/04/17 Carvedilol [Coreg -] 3.125 mg PO BID tablet 01/04/17 Cephalexin Monohydrate [Keflex -] 500 mg PO Q8H #15 capsule 01/04/17 Ferrous Sulfate [Feosol] 325 mg PO DAILY ud 01/04/17 Levothyroxine [Synthroid -] 25 mcg PO DAILY@0700 tablet 01/04/17 This patient is new to me today: No Emergency Visit: No Critical Care patient: No - Discharge Referral Referred to [facility] No
[2017-01-04] MEDS ORDERED: CEPHALEXIN MONOHYDRATE 500 MG CAPSULE (UD) PO SCH (13:30)
--- NOTE | 2017-01-04 19:43 | PN ---
Teaching Attending Note Name of Resident: Mikey Silva ATTENDING PHYSICIAN STATEMENT I saw and evaluated the patient. I reviewed the resident's note and discussed the case with the resident. I agree with the resident's findings and plan as documented. SUBJECTIVE: Redness and erythema resolved. No fever or shortness of breath. OBJECTIVE: Vital Signs Temperature 98.4 F 01/04/17 09:54 Pulse Rate 76 01/04/17 09:54 Respiratory Rate 20 01/04/17 09:54 Blood Pressure 112/69 01/04/17 09:54 O2 Sat by Pulse Oximetry (%) 96 01/04/17 09:00 GENERAL: thin elderly woma, Awake, alert, and fully oriented, in no acute distress. HEAD: Normal with no signs of trauma. EYES: Pupils equal, round and reactive to light, extraocular movements intact, sclera anicteric, conjunctiva clear. EARS, NOSE, THROAT: Ears normal, oropharynx clear without exudates. Moist mucous membranes. NECK: Normal range of motion, supple without lymphadenopathy, JVD, or masses. LUNGS: Breath sounds equal, clear to auscultation bilaterally. No wheezes, and no crackles. HEART: Regular rate and rhythm, normal S1 and S2 without murmur, rub or gallop. ABDOMEN: Soft, nontender, not distended, normoactive bowel sounds, no guarding, no rebound, no masses. MUSCULOSKELETAL: Normal range of motion at all joints. No bony deformities or tenderness. No CVA tenderness. EXTREMITIES: 2+ pulses, warm, well-perfused. No peripheral edema. Right UE: erythema and swelling resolved NEUROLOGICAL: Cranial nerves II-XII intact. Normal speech. Normal gait. PSYCHIATRIC: Cooperative. Good eye contact. Appropriate mood and affect. SKIN: Warm, dry, normal turgor, no rashes or lesions noted. CBCD WBC 7.8 K/mm3 (4.0-10.0) 01/03/17 06:35 RBC 3.75 M/mm3 (3.60-5.2) 01/03/17 06:35 Hgb 12.3 GM/dL (10.7-15.3) 01/03/17 06:35 Hct 36.7 % (32.4-45.2) 01/03/17 06:35 MCV 97.8 fl (80-96) H 01/03/17 06:35 MCHC 33.5 g/dl (32.0-36.0) 01/03/17 06:35 RDW 13.5 % (11.6-15.6) 01/03/17 06:35 Plt Count 245 K/MM3 (134-434) 01/03/17 06:35 MPV 8.5 fl (7.5-11.1) 01/03/17 06:35 CMP Sodium 142 mmol/L (136-145) 01/03/17 06:35 Potassium 4.1 mmol/L (3.5-5.1) 01/03/17 06:35 Chloride 106 mmol/L (98-107) 01/03/17 06:35 Carbon Dioxide 28 mmol/L (21-32) 01/03/17 06:35 Anion Gap 8 (8-16) 01/03/17 06:35 BUN 16 mg/dL (7-18) 01/03/17 06:35 Creatinine 0.8 mg/dL (0.55-1.02) 01/03/17 06:35 Creat Clearance w eGFR 59.23 (>60) 01/02/17 14:57 Random Glucose 100 mg/dL (74-106) 01/03/17 06:35 Calcium 8.7 mg/dL (8.5-10.1) 01/03/17 06:35 Total Bilirubin 0.5 mg/dL (0.2-1.0) 01/02/17 14:57 AST 22 U/L (15-37) 01/02/17 14:57 ALT 32 U/L (12-78) 01/02/17 14:57 Alkaline Phosphatase 89 U/L (45-117) 01/02/17 14:57 Total Protein 6.8 g/dl (6.4-8.2) 01/02/17 14:57 Albumin 3.5 g/dl (3.4-5.0) 01/02/17 14:57 Home Medications Medication Instructions Recorded Calcium Carbonate/Vitamin D3 1 each PO BID 01/02/17 [Calcium 600 + Vit D Tablet] Cetirizine HCl [Zyrtec -] 10 mg PO DAILY 01/02/17 Cholecalciferol (Vitamin D3) 1,000 unit PO DAILY 01/02/17 [Vitamin D -] Fluticasone Prop 0.05% Nasal 2 spray NS DAILY 01/02/17 [Flonase -] Gabapentin [Neurontin] 100 mg PO HS 01/02/17 Hydrochlorothiazide [Hctz -] 12.5 mg PO DAILY 01/02/17 Lisinopril [Prinivil] 20 mg PO DAILY 01/02/17 Risedronate Sodium [Actonel] 30 mg PO WEEKLY 01/02/17 Atorvastatin Ca [Lipitor] 80 mg PO HS tablet 01/04/17 Carvedilol [Coreg -] 3.125 mg PO BID tablet 01/04/17 Cephalexin Monohydrate [Keflex -] 500 mg PO Q8H #15 capsule 01/04/17 Ferrous Sulfate [Feosol] 325 mg PO DAILY ud 01/04/17 Levothyroxine [Synthroid -] 25 mcg PO DAILY@0700 tablet 01/04/17 ASSESSMENT AND PLAN: 86 year old woman with HTN, hx of MIx2, osteoporosis, hypothyroidism, was referred from [facility] urgent care for IV antibiotics for right hand cellulitis. She was cutting cheese yesterday when she cut herself in the byrnes space between her thumb and index finger. # Acute Cellulitis of Right upper extremity s/p IV Ancef 1gm q8h s/p Vancomycin .patient is being discharged keflex 500mg q8h as per Id #HTN controlled continue Lisinopril and Hctz DVT px: Lovenox
== END 2017-01-04 14:02 | disposition home or self-care (01) | DRG 603 ==
LOC: JER 13:30 → UNDOADMOB 15:14 → JERBED 15:14 → OBSVTOIN 16:43 → J5S 21:40
PROVIDERS: ADMIT Internal Medicine; ATTEND Internal Medicine
DX: L03.113 Cellulitis of right upper limb (principal); I73.9 Peripheral vascular disease, unspecified; D64.9 Anemia, unspecified; I10 Essential (primary) hypertension; E78.5 Hyperlipidemia, unspecified; I25.10 Atherosclerotic heart disease of native coronary artery without angina pectoris; G43.909 Migraine, unspecified, not intractable, without status migrainosus; E03.9 Hypothyroidism, unspecified; H43.819 Vitreous degeneration, unspecified eye; I25.2 Old myocardial infarction; M81.0 Age-related osteoporosis without current pathological fracture; R26.81 Unsteadiness on feet; G62.9 Polyneuropathy, unspecified; I83.90 Asymptomatic varicose veins of unspecified lower extremity
CPT/HCPCS: 36415; 80048; 80053; 81003; 81015; 85025; 85027; 87040; 87086; 97116-GP; 97161-GP; 99284-25